=== PATIENT | female | born 1985 | race Caucasian/White ===

== ENCOUNTER 2016-08-28 08:29 | Day surgery (SDC) | payer BC, OTHER ==
[~2016-08-28] VITALS: Ht 167.6 cm; Wt 72.0 kg
[~2016-08-28 08:29] MED LIST: CEFAZOLIN 2000 MG/60 ML D5W 50 ML IV SCH; LACTATED RINGER'S 1000ML 1,000 ML IV SCH; MTR600X PO; PATIENT'S ALLERGY INFO NEEDS ENTERED SCH; PATIENT'S HEIGHT AND/OR WEIGHT NEEDED SCH; PRENTAB26 PO
[2016-08-28 08:43] VITALS: BP 119/74; PULSE 98; TEMP 36.7; O2SAT 99; Ht 167.6 cm; Wt 72.0 kg
--- NOTE | 2016-08-28 08:57 | History & Physical Bridge Note ---
H&P Re-Evaluation Bridge Note: I have examined the patient, reviewed the History & Physical and in the interval since the performance of the History & Physical I have noted the following changes of clinical significance: No changes noted
[2016-08-28] MEDS ORDERED: ONDANSETRON INJ 2 MG/ML 2 ML VIAL ONE (09:01)
[2016-08-28] MEDS ORDERED: MIDAZOLAM HCL 1 MG/ML 2ML VIAL ONE (09:01)
[2016-08-28] MEDS ORDERED: LIDOCAINE HCL 2% 2 ML VIAL (20MG/ML) ONE (09:01)
[2016-08-28] MEDS ORDERED: KETOROLAC TROMETHAMINE 30 MG/ML VIAL ONE (09:01)
[2016-08-28] MEDS ORDERED: PROPOFOL IV EMULSION 10 MG/ML 20 ML VIAL IV ONE ×2 (09:01→09:35)
[2016-08-28] MEDS ORDERED: DEXAMETHASONE SOD INJ 4 MG/ML VIAL ONE (09:01)
[2016-08-28] MEDS ORDERED: FENTANYL CITRATE INJ 50 MCG/1 ML 2 ML VIAL ONE (09:01)
[2016-08-28] MEDS ORDERED: METHYLERGONOVINE MALEATE 0.2 MG/ML AMP ONE (09:07)
[2016-08-28] MEDS ORDERED: SODIUM CHLORIDE 0.9% 1000ML 1,000 ML IV SCH (09:37)
[2016-08-28] MEDS ORDERED: IBUP600T44 PO (09:38)
--- NOTE | 2016-08-28 09:39 | Discharge Instructions ---
Discharge Instructions Date of Service Aug 28, 2016. Visit Reason for Visit: Missed Discharge Discharge Diagnosis / Problem: Missed Discharge Goals Goal(s): Decrease discomfort Activity Recommendations Activity Limitations: per Instructions/Follow-up section Anesthesia . Post Anesthesia Instructions: If you have had General Anesthesia or IV Sedation: * Do not drive today. * Resume driving when surgeon permits. * Do not make important decisions or sign legal documents today. * Call surgeon for: 1. Temperature elevations greater than 101 degrees F. 2. Uncontrollable pain. 3. Excessive bleeding. 4. Persistent nausea and vomiting. 5. Medication intolerance (nausea, vomiting or rash). * For nausea and vomiting use only clear liquids such as: tea, soda, bouillon until nausea subsides, then gradually increase diet as tolerated. * If you have any concerns or questions, call your surgeon's office. If physician is unavailable and it is an emergency, call 911 or go to the nearest emergency room. . Instructions / Follow-Up Instructions / Follow-Up ACTIVITY RECOMMENDATIONS: * Avoid tampons, douching, hot tubs, pools, and intercourse until bleeding has stopped. * May shower as usual. * No strenuous activity for 24-48 hours. After 24-48 hours, you may do anything you feel like doing (driving and sports are okay). SPECIAL CARE INSTRUCTIONS: Special Diet: * Mild nausea may occur in the immediate post-operative period. * Take clear liquids such as tea, cola or bouillon until all nausea has subsided; you may then resume your normal diet. Special Care: * Light bleeding and vaginal spotting can last from a few days to 3-4 weeks. Call your doctor if bleeding becomes heavier than the heaviest part of your period. * Check your temperature twice a day for one week. If it goes above 100.4 degrees Fahrenheit (38.0 Celsius), notify your doctor. * Call your doctor's office for an appointment for 6 weeks after your surgery. FOLLOW-UP VISIT: Call your doctor's office for an appointment for 6 weeks after your surgery. Diet Recommendations Recommended Home Diet: no limitations, resume previous diet Procedures Procedures Performed: Suction D&E Pending Studies Studies pending at discharge: no Medical Emergencies . Who to Call and When: Medical Emergencies: If at any time you feel your situation is an emergency, please call 911 immediately. . Non-Emergent Contact Non-Emergency issues call your: Primary Care Provider, Title Specialist . . "Provider Documentation" section prepared by Philippe Wayne.
--- NOTE | 2016-08-28 09:43 | [facility] Post Operative Brief Note ---
Immediate Operative Summary Operative Date Aug 28, 2016. Pre-Operative Diagnosis Missed Post-Operative Diagnosis Missed Procedure(s) Performed Suction D&E Surgeon Rosana Bonderizer Surgeon(s) None Estimated Blood Loss 50ml Findings On bimanual exam uterus was at midline and freely mobile. Uterus sounded to 11 cm. Cervix was dilated with hegar dilators. Using a size 10 suction curette the entire contents of the uterine cavity was evacuated. After completion a large banjo curette was used and a thorough curettage of the cavity was performed obtaining a minimal amount of tissue. Excellent hemostasis noted. Patient tolerated the procedure well and was sent to recovery with stable vital signs. Fluids (cc crystalloids) 600 Specimens A: Products of conception Drains None Anesthesia General Complication(s) None Disposition Recovery Room / PACU
[2016-08-28] MEDS ORDERED: OXYCODONE/ACETAMINOPHEN 5-325 TAB PO PRN ×2 (09:45)
[2016-08-28] MEDS ORDERED: ONDANSETRON INJ 2 MG/ML 2 ML VIAL IV PRN ×2 (09:45→10:00)
[2016-08-28] MEDS ORDERED: IBUPROFEN 600 MG TAB PO PRN (09:45)
[2016-08-28] MEDS ORDERED: MEPERIDINE HCL 25 MG/ML CARP IV PRN (10:00)
[2016-08-28] MEDS ORDERED: ATROPINE SULFATE 0.1 MG/ML 5ML SYR IV PRN (10:00)
[2016-08-28] MEDS ORDERED: HYDROmorphone INJ 2 MG/ML SYR/VIAL IV PRN (10:00)
[2016-08-28] MEDS ORDERED: EpHEDrine SULFATE INJ 50 MG/ML AMP IV PRN (10:00)
[2016-08-28] MEDS ORDERED: FLUMAZENIL 0.1 MG/1 ML 10 ML VIAL IV PRN (10:00)
[2016-08-28] MEDS ORDERED: NALOXONE HCL 0.4 MG/1 ML VIAL/CARP IV PRN (10:00)
[2016-08-28] MEDS ORDERED: PHENYLEPHRINE 100MCG/ML 5ML SYR IV PRN (10:00)
[2016-08-28] MEDS ORDERED: LABETALOL HCL IV 5 MG/ML 20ML IV PRN (10:00)
[2016-08-28] MEDS ORDERED: FENTANYL CITRATE INJ 50 MCG/1 ML 2 ML VIAL IV PRN (10:00)
--- NOTE | 2016-08-28 10:08 | Anesthesiology Progress Note ---
Anesthesia Post Op Note Date & Time Aug 28, 2016 at 10:07 Vital Signs Pain Intensity: 0 Vital Signs Past 12 Hours Date Time Temp Pulse Resp B/P Pulse Ox O2 Delivery O2 Flow Rate FiO2 08/28/16 10:00 77 16 107/65 97 Room Air 08/28/16 09:50 78 16 112/51 100 Mask 10 08/28/16 09:41 36.3 71 16 104/52 98 Mask 10 08/28/16 08:43 36.7 98 16 119/74 99 Room Air Notes Mental Status: alert / awake / arousable, participated in evaluation Pt Amnestic to Procedure: Yes Nausea / Vomiting: adequately controlled Pain: adequately controlled Airway Patency, RR, SpO2: stable & adequate BP & HR: stable & adequate Hydration State: stable & adequate Anesthetic Complications: no major complications apparent
[2016-08-28 10:30] VITALS: BP 104/69; PULSE 69; TEMP 36.4; O2SAT 99
[2016-08-28 11:00] VITALS: BP 121/76; PULSE 75; O2SAT 99
[2016-08-28 11:22] VITALS: BP 121/76; PULSE 72; TEMP 36.8; O2SAT 99
--- NOTE | 2016-08-28 21:24 | OPERATIVE REPORT ---
DATE OF OPERATION: 08/28/2016 PREOPERATIVE DIAGNOSIS: Missed . POSTOPERATIVE DIAGNOSIS: Same. OPERATIVE PROCEDURE: Suction, dilation and evacuation. SURGEON: Dr. Wayne. COPPER ROLLER HANDLER PRINTING: None. ANESTHESIA: General. ESTIMATED BLOOD LOSS: 50 mL. IV FLUIDS: 600 mL crystalloids. URINE OUTPUT: 150 mL clear yellow urine. SPECIMENS: Products of conception. DRAINS: None. COMPLICATIONS: None. DISPOSITION: Recovery room. OPERATIVE FINDINGS: On bimanual exam, uterus was at midline and freely mobile. Bilateral adnexa were clear to palpation. Uterus sounded to 11 cm. Cervix was dilated with a Hegar dilators. Using a size 10 suction curette, the entire contents of the uterine cavity was evacuated. After completion of the D and E, a large banjo curette was used and a thorough curettage of the cavity was performed obtaining a minimal amount of tissue. Excellent hemostasis was noted. The patient tolerated the procedure well and was sent to recovery with stable vital signs. OPERATIVE PROCEDURE IN DETAIL: The patient was taken to the operating room where general anesthesia was administered. Once the anesthesia was found to be adequate, the patient was placed in a dorsal lithotomy position and was prepped and draped in a manner appropriate for the procedure. Bimanual examination was then performed. The bladder was then drained of clear yellow urine. A weighted speculum was then placed into the vagina and the anterior lip of the cervix was grasped with a single tooth tenaculum. The cervix was then dilated with Hegar dilators. Using a size 10 suction curette, a thorough curettage of the entire endometrial cavity was performed obtaining a moderate amount of products of conception, which was sent to pathology. Once the entire cavity was evacuated, the suction curet was removed and a large banjo curette was used and a thorough curettage of the cavity was again performed obtaining a minimal amount of tissue. The uterus was sounded to 11 cm. At this point, the procedure was found to be complete. Excellent hemostasis was noted. All instruments were then removed from the vagina. All sponge and instrument counts were found to be correct x2. The patient tolerated the procedure well and was sent to recovery with stable vital signs. I attest to the content of the Intraoperative Record and any orders documented therein. Any exceptio ns are noted below.
== END 2016-08-28 11:30 | disposition home or self-care (01) ==
LOC: C.ACU 08:29
PROVIDERS: ATTEND Obstetrics & Gynecology
DX: O02.1 Missed abortion (principal); Z80.3 Family history of malignant neoplasm of breast; Z80.1 Family history of malignant neoplasm of trachea, bronchus and lung; Z80.41 Family history of malignant neoplasm of ovary; Z87.891 Personal history of nicotine dependence

== ENCOUNTER 2017-08-18 15:29 | Outpatient (CLI) | payer OTHER ==
[~2017-08-18] VITALS: Ht 170.2 cm; Wt 90.7 kg
[~2017-08-18 15:29] MED LIST changes: -CEFAZOLIN 2000 MG/60 ML D5W 50 ML IV SCH; -LACTATED RINGER'S 1000ML 1,000 ML IV SCH; -PATIENT'S ALLERGY INFO NEEDS ENTERED SCH; -PATIENT'S HEIGHT AND/OR WEIGHT NEEDED SCH
[2017-08-18 15:30] VITALS: Ht 170.2 cm; Wt 90.7 kg
--- NOTE | 2017-08-18 17:13 | Progress Note ---
Progress Note Date of Service Aug 18, 2017. Progress Note 30 F P2012 at 38 weeks here to r/o rupture membrane. Sterile speculum exam done with Nitrazine negative and no ferning. Amnisure was positive. No pooling or leakage of fluid. FHT Cat 1 GBS is negative. Irregular contractions. Will discharge home without evidence of ROM. Homegoing instructions reviewed with patient.
== END 2017-08-18 18:00 | disposition home or self-care (01) ==
LOC: C.OPB 15:29 → C.LD 15:30 → C.OPB 18:00
PROVIDERS: ATTEND Obstetrics & Gynecology
DX: O62.9 Abnormality of forces of labor, unspecified (principal); Z3A.38 38 weeks gestation of pregnancy

== ENCOUNTER 2017-08-20 04:47 | Inpatient (IN) | payer OTHER ==
[~2017-08-20] VITALS: Ht 170.2 cm; Wt 91.0 kg
[2017-08-20] MEDS ORDERED: NURSING VERBAL MED ORDER ONE (06:00)
[2017-08-20] MEDS ORDERED: LACTATED RINGER'S 1000ML 1,000 ML IV SCH ×3 (06:15→14:16)
[2017-08-20 06:18] VITALS: Ht 170.2 cm; Wt 91.0 kg
[2017-08-20 06:19] LABS: HEMATOCRIT 37.5 % (37-47); HEMOGLOBIN 12.6 g/dL (12.0-16.0); MEAN CELL VOLUME 84.8 fL (80-100); MEAN CORPUSCULAR HEMOGLOBIN 28.5 pg (25-34); MEAN PLATELET VOLUME 10.4 fL (7.4-10.4); PLATELET COUNT 216 K/uL (130-400); RED CELL DISTRIBUTION WIDTH CV 13.6 % (11.5-14.5); RED CELL DISTRIBUTION WIDTH SD 41.5 fL (36.4-46.3)
[2017-08-20 06:21] LABS: MEAN CORPUSCULAR HGB CONC 33.6 g/dl (32-36)
[2017-08-20] MEDS ORDERED: BUPIVACAINE 0.25% 30 ML VIAL ONE (07:36)
[2017-08-20] MEDS ORDERED: EpHEDrine SULFATE INJ 50 MG/ML AMP ONE (07:37)
[2017-08-20] MEDS ORDERED: FENTANYL CITRATE INJ 50 MCG/1 ML 2 ML VIAL ONE (07:37)
[2017-08-20] MEDS ORDERED: FENTANYL 2MCG/ML ROPIV 1.25MG/ML 100ML BAG EPI ONE (07:38)
[2017-08-20] MEDS ORDERED: LACTATED RINGER'S 1000ML 500 ML IV PRN (08:18)
[2017-08-20] MEDS ORDERED: NALOXONE HCL INJ 1 MG in SODIUM CHLORIDE 0.9% 1000ML 1,000 ML IV PRN ×4 (08:18)
[2017-08-20] MEDS ORDERED: DiphenhydrAMINE HCL 50 MG/ML VIAL IV PRN (08:30)
[2017-08-20] MEDS ORDERED: ONDANSETRON INJ 2 MG/ML 2 ML VIAL IV PRN (08:30)
[2017-08-20] MEDS ORDERED: EpHEDrine SULFATE INJ 50 MG/ML AMP IV PRN (08:30)
[2017-08-20] MEDS ORDERED: NALBUPHINE HCL INJ 10 MG/ML AMP IV PRN (08:30)
[2017-08-20] MEDS ORDERED: NALOXONE HCL INJ 0.4 MG/1 ML VIAL/CARP IV PRN (08:30)
[2017-08-20] MEDS ORDERED: PROMETHAZINE HCL INJ 25 MG in SODIUM CHLORIDE 0.9% 50ML 50 ML IV PRN (08:30)
[2017-08-20] MEDS ORDERED: FENTANYL 2MCG/ML ROPIV 1.25MG/ML 100ML BAG EPI PRN (08:30)
[2017-08-20] MEDS ORDERED: OXYTOCIN 30 UNITS/500ML NSS IV ONE (14:10)
[2017-08-20] MEDS ORDERED: HYDROCORTISONE ACETATE 25 MG SUPP PR PRN (14:30)
[2017-08-20] MEDS ORDERED: OXYTOCIN 30 UNITS/500ML NSS IV PRN (14:30)
[2017-08-20] MEDS ORDERED: BENZOCAINE 20% AER SPR 82.5 GM CAN EXT PRN (14:30)
[2017-08-20] MEDS ORDERED: ACETAMINOPHEN 325 MG TAB PO PRN (14:30)
[2017-08-20] MEDS ORDERED: LANOLIN OINT EXT PRN (14:30)
[2017-08-20] MEDS ORDERED: MEASLES, MUMPS & RUBELLA VIRUS VIAL SQ. ONE (14:30)
[2017-08-20] MEDS ORDERED: DIPHTHERIA/TETANUS/PERTUSSIS 0.5 ML SYR/VIAL IM. ONE (14:30)
[2017-08-20] MEDS ORDERED: SUPERCREAM 0.870 % 15GM JAR EXT PRN (14:30)
[2017-08-20] MEDS: IBUPROFEN 600 MG TAB PO PRN (14:55)
--- NOTE | 2017-08-20 16:43 | DELIVERY SUMMARY ---
DATE OF OPERATION: 08/20/2017 TIME OF DELIVERY OF BABY: 13:51 p.m. TIME OF DELIVERY OF PLACENTA: 14:08 p.m. DETAILS OF DELIVERY: The patient was found to be fully dilated and desired to push. She pushed through 3 contractions and then delivered the head over an intact perineum. Anterior shoulder was delivered with with minimal/ gentle traction and then posterior shoulder and the body delivered without difficulty. Baby was handed to the mother where mouth and nose were suctioned. The cord was clamped x2 and cut at 40 seconds delay. Baby was handed to the awaiting nurses. Vagina and perineum were checked for lacerations. There was a small about 1.5 cm, a second degree perineal laceration in the posterior fourchette. Rectal exam was confirmed to be second degree with good sphincter tone. Gloves were changed. This laceration was repaired with 3-0 Vicryl in a running locked fashion and the skin in a subcuticular fashion. Excellent hemostasis was achieved. Rest of the vagina and perineum were intact. Placenta was found to be in the vagina, delivered spontaneously with intact and complete. Uterus was explored and found to be empty. Lower segment was cleared off all clots and debris. Fundus was firm. EBL was 200ml. Mom and baby tolerated the procedure well. Baby was a viable male infant. Apgars 8/9. Weight 4684 gr. No complications happened and I was present during the whole procedure. At the end of the procedure, sponge, needle and instrument counts were x2. I attest to the content of the Intraoperative Record and any orders documented therein. Any exceptions are noted below. MTDD
[2017-08-20 18:20] VITALS: BP 123/73; PULSE 96; TEMP 36.8; O2SAT 96
[2017-08-20 19:45] VITALS: BP 130/79; PULSE 96; TEMP 36.7; O2SAT 97
[2017-08-20] MEDS: DOCUSATE SODIUM 100 MG CAP PO SCH (19:56)
[2017-08-20 23:40] VITALS: BP 121/68; PULSE 70; TEMP 36.6
[2017-08-21] MEDS: IBUPROFEN 600 MG TAB PO PRN ×3 (02:18→15:09)
[2017-08-21 04:00] VITALS: BP 122/68; PULSE 76; TEMP 36.6
[2017-08-21 06:31] LABS: HEMATOCRIT 31.3 % (37-47); HEMOGLOBIN 10.1 g/dL (12.0-16.0)
[2017-08-21 07:30] VITALS: BP 117/78; PULSE 83; TEMP 36.8; O2SAT 98
[2017-08-21] MEDS: DOCUSATE SODIUM 100 MG CAP PO SCH ×2 (07:41→20:03)
[2017-08-21] MEDS ORDERED: FERROUS SULFATE 325 MG TAB PO SCH (08:00)
[2017-08-21] MEDS ORDERED: PRENATAL VITAMIN TAB PO SCH (08:00)
[2017-08-21] MEDS ORDERED: MISC-836 ×2 (10:17)
--- NOTE | 2017-08-21 10:19 | Discharge Instructions ---
Discharge Instructions Date of Service Aug 21, 2017. Admission Reason for Admission: LABOR Discharge Discharge Diagnosis / Problem: vaginal delivery Discharge Goals Goal(s): Routine recovery after delivery Medications Continue Dispensed Medications: supercream, dermaplast, tucks, lansinoh Activity Recommendations Activity Limitations: per Instructions/Follow-up section . Instructions / Follow-Up Instructions / Follow-Up ACTIVITY RECOMMENDATIONS: * Gradual return to full activity over the next 2-3 weeks. * No lifting - nothing heavier than baby over the next 2-3 weeks. * Do not engage in vigorous exercise, sexual activity or sports until cleared by your physician. * Do not drive or operate any motorized equipment until cleared by your physician. * You may shower/bathe daily. BREAST CARE: If you are not breast feeding: * Wear a supportive bra 24 hours a day for one to two weeks. * Avoid stimulating your breasts and nipples as much as possible during the first few weeks after delivery. * When taking a shower, have the warm water hit your back, not breasts. * When your breasts feel full, apply ice packs. Usually three to four times a day helps ease the discomfort. * Take a mild pain medication (Tylenol/Motrin) when you are uncomfortable. If breast feeding: * Use breast milk to lubricate nipples. Lansinoh cream may be used for sore nipples. You do not need to remove cream prior to breast feeding. If using a different brand of cream, check the label for directions regarding removal of cream prior to nursing. * Wear a supportive bra. * If having problems with breasts or breast feeding, call a senior business consultant or your health care provider. EPISIOTOMY CARE: After delivery, if you have an episiotomy (stitches), the following steps will ease discomfort and aid healing. * For the first 24 hours after delivery, place ice packs next to your episiotomy to help reduce swelling. * After the first 24 hour-period, sitz baths, either portable or in the tub, are suggested. A shower with a shower arm sprayed over the episiotomy may be comforting. * Serina care should be done after each voiding and bowel movement. Squirt warm water from a plastic bottle over the perineum (region of the body between the anus and urinary opening) and pat dry. * Use Dermoplast to ease discomfort. Shake container. Keller directly over the episiotomy. * Place a Tucks on a clean sanitary pad next to your episiotomy. OVER THE COUNTER MEDICATION: * For discomfort or pain, you may use Acetaminophen (Tylenol), Ibuprofen (Advil ), or Naproxen (Aleve) following the package directions. * For constipation you may use Colace following the package directions. SPECIAL CARE INSTRUCTIONS: When you are discharged from the hospital, it is important for you to follow the instructions listed below: * During the first week at home, you should be able to care for yourself and your baby. In addition, the usual light household activities are encouraged. * Limit your activities to the way you feel. Do not try to clean the house or move furniture. Be sensible. * If you actively engage in sports and have done so up until the time of your delivery, you may resume these activities as soon as you feel able. This may take up to one month or even longer. Use good judgment. * Continue to take your vitamins for at least six weeks after the of your baby. * Your diet need not be limited unless you were on a special diet before your delivery. Breast-feeding mothers need around 2500 calories per day and at least 64-80 ounces of fluid per day (8 to 10 glasses). * You should eat foods from the four major food groups. Crash diets or fad diets are to be avoided. Eating lean meats, fresh fruits and vegetables, low-fat dairy products, high fiber foods and a regular exercise program, will help you get back to your pre- weight without putting your health at risk. * Constipation is sometimes a problem after delivery. Take a mild laxative as needed. If breast feeding, Milk of Magnesia is acceptable to use. You may use a suppository or Fleets enema if no episiotomy. * A daily shower or tub bath is suggested. Be sure to thoroughly and gently dry the perineum. * A bloody vaginal discharge will usually continue until around four weeks post . A small amount of bleeding may continue for as long as six weeks. Vaginal discharge changes from the bright red bleeding after delivery to pink then brownish and finally yellowish-pink before becoming white and disappearing. * Bleeding may increase with activity. Your first period may come in 4-8 weeks. If you are breast feeding, your period may be delayed even longer. * [place] (sex) can begin whenever both you and your partner feel comfortable and do not have any form of genital infection. It is recommended that you wait until after your return appointment and discuss with your physician. If you have questions, please talk to your health care practitioner. A condom should be used to prevent infection and . * Foreplay, gentle intercourse and lubrication is very important the first several times to prevent pain. A water-based lubricant such as K-Y jelly or Astroglide may be used. * Tampons may be used six weeks after delivery. * Douching should be avoided for 6 weeks after delivery. * If you have RH negative blood and your baby is RH positive, you will receive RHOGAM by injection prior to discharge. The nurse will give you a card to keep with you that has the date and place that you received RHOGAM after delivery. * During your care, you had a Rubella screen done to check for the presence of rubella antibodies in your blood. If your test was negative, you will receive a Rubella vaccine prior to discharge. This vaccine may cause a fever, soreness at the injection site and flu-like symptoms. If these symptoms persist, notify your health care practitioner. is not advised for three months after a Rubella vaccine. There is a higher chance of having a baby with defects if conceived within three months of getting the vaccine. * If you were discharged 24 hours from delivery or before 48 hours: Visiting nurses will come to your home 48 hours after discharge to assess you and your baby. The visiting nurse will meet with you while you are in the hospital to arrange a time and get directions to your home. * Verbalizes understanding of car seat law as reviewed with patient nursing. * Car Seat hand-out given and reviewed with patient by nursing. * Shaken baby information reviewed with patient by nursing. Call you doctor if: * Heavy bleeding (saturating several pads an hour) or passing clots the size of your fist. * A fever >101 degrees F (38.3 degrees C) on two occasions four hours apart and/or chills. * Unusual pain in the pelvic or vaginal areas. * "Baby Blues" lasting longer than two weeks. If you have any questions or concerns, call your health care practitioner at . FOLLOW-UP VISIT: * Please call the office at to schedule a 6 week examination. It is important you keep this appointment. * It is important for you to make arrangements for either yearly or twice yearly check-ups thereafter. Current Hospital Diet Patient's current hospital diet: Regular OB Diet Discharge Diet Recommended Diet: Regular OB Diet Pending Studies Studies pending at discharge: no Medical Emergencies . Who to Call and When: Medical Emergencies: If at any time you feel your situation is an emergency, please call 911 immediately. . Non-Emergent Contact Non-Emergency issues call your: Primary Care Provider, Air Defense Control Officer . . "Provider Documentation" section prepared by Philippe Wayne. .
--- NOTE | 2017-08-21 10:21 | OB/GYN Progress Note ---
REPAIRER GENERAL Progress Note Date of Service Aug 21, 2017. Subjective conversation w/ patient, physical exam Ambulation: ambulating normally Voiding: no voiding problems Passing Gas: Yes Diet Tolerance: Regular Diet Lochia: Moderate Pain: 2/10 Notes: Doing well, no concerns. Pain well controlled. Tolerating regular diet. Ambulating without difficulty. Would like to go home today. Objective Vital Signs Date Time Temp Pulse Resp B/P (MAP) Pulse Ox O2 Delivery O2 Flow Rate FiO2 08/21/17 07:30 98 Room Air 08/21/17 07:30 36.8 83 18 117/78 (91) 98 Room Air 08/21/17 04:00 36.6 76 18 122/68 (86) Room Air 08/20/17 23:40 Room Air 08/20/17 23:40 36.6 70 16 121/68 (85) Room Air 08/20/17 19:45 36.7 96 18 130/79 (96) 97 Room Air 08/20/17 18:20 96 Room Air 08/20/17 18:20 36.8 96 20 123/73 (90) 96 Room Air Physical Exam General Appearance: WELL-APPEARING Respiratory/Chest: chest non-tender, lungs clear Cardiovascular: regular rate, rhythm Abdomen: normal bowel sounds, soft Fundus: Firm Extremities: normal range of motion, non-tender, no calf tenderness Laboratory Results Last 24 Hours Test 08/21/17 06:07 Hemoglobin 10.1 g/dL Hematocrit 31.3 % Assessment and Plan Post- Day Number: 1 Continue Routine Care: -D/C home today -F/U in 6 weeks
[2017-08-21 11:17] VITALS: BP 125/79; PULSE 89; TEMP 35; O2SAT 96
[2017-08-21 15:20] VITALS: BP 123/81; PULSE 84; TEMP 36.7; O2SAT 97
[2017-08-21 19:45] VITALS: BP_DIAS 81; PULSE 84; TEMP 36.7
[2017-08-21] MEDS ORDERED: BISACODYL 5 MG TABEC PO SCH (20:00)
[2017-08-22] MEDS ORDERED: BISACODYL 10 MG SUPP PR PRN (07:00)
== END 2017-08-21 20:15 | disposition home or self-care (01) | DRG 775 ==
LOC: C.LD 04:47 → C.OPB 04:47 → C.LD 05:34 → C.OPB 05:34 → C.OBG 18:32
PROVIDERS: ADMIT Obstetrics & Gynecology; ATTEND Obstetrics & Gynecology
PROC: 10E0XZZ Delivery of Products of Conception, External Approach (ICD-10-PCS; principal; 2017-08-20)
PROC: 0KQM0ZZ Repair Perineum Muscle, Open Approach (ICD-10-PCS; principal; 2017-08-20)
DX: O24.420 Gestational diabetes mellitus in childbirth, diet controlled (principal); O36.0930 Maternal care for other rhesus isoimmunization, third trimester, not applicable or unspecified; O70.1 Second degree perineal laceration during delivery; O36.63X0 Maternal care for excessive fetal growth, third trimester, not applicable or unspecified; Z3A.38 38 weeks gestation of pregnancy; Z37.0 Single live birth

== ENCOUNTER 2023-05-25 06:53 | Inpatient (IN) ==
[2023-05-25] MEDS ORDERED: ONDANSETRON INJ 2 MG/ML 2 ML VIAL IV STA (07:08)
[2023-05-25] MEDS ORDERED: MoRPHine SULFATE 4 MG/ML 1 ML CARP\\VIAL IV STA (07:08)
--- NOTE | 2023-05-25 07:16 | Emergency Department Note ---
History of Present Illness General Chief complaint: Abdominal Pain Time Seen by Provider: 05/25/23 07:00 History of Present Illness Maximum Pain Intensity: 10 This is a 37-year-old female that presents to the emergency department via private vehicle with complaints of "abdominal pain". The patient noted that a little bit over 24 hours ago she began with lower abdominal discomfort. She states this began on the evening of May 23. She thought it was just some cramping in the abdomen and then notes that this morning she awoke and when she went to "stretch" she noted increasing abdominal pain throughout the lower abdomen. It is more on the right side than the left but does involve both sides. She has associated chills and nausea. She denies any fevers, vomiting, chest pain, shortness of breath or dysuria. She denies any pertinent past medical history. She notes a history of D&E. No known drug allergies. She denies chance of . Current pain 10. She has had nothing to eat or drink since last evening. Home Medications Medication Instructions Recorded Confirmed Type bupropion HCl 150 mg tablet,12 hr 150 mg PO BID 05/25/23 05/25/23 History sustained-release Allergies Allergy/AdvReac Type Severity Reaction Status Date / Time No Known Allergies Allergy Verified 05/25/23 11:08 Past Med/Surg History Medical History No pertinent past medical history Social History Smoking Status: Current every day smoker Tobacco Type: Cigarettes Preferred Language: Eritrean Feels Safe at Home: Yes Review of Systems A total of 10 systems reviewed and were otherwise negative Physical Exam Vital Signs Vital Signs - 24 hr 05/25/23 06:56 05/25/23 08:57 05/25/23 10:47 Temperature 36.6 C Temperature Source Temporal Artery Scan Pulse Rate 91 H 68 Pulse Rate [Finger] 80 Pulse Rhythm [Finger] Regular Pulse Strength [Finger] Normal Respiratory Rate 18 18 16 Respiratory Effort / Characteristics Non-Labored Spontaneous Respiratory Depth Normal Respiratory Pattern Regular Blood Pressure 126/66 117/68 Blood Pressure [Right Arm] 117/63 Blood Pressure Mean 86 Blood Pressure Mean [Right Arm] 81 Blood Pressure Position [Right Arm] Pulse Oximetry 100 98 97 Oxygen Delivery Method Room Air Room Air Room Air Sepsis Recent Fever Within 48 Hours No Sepsis New/Unexplained Change in Mental Status No Sepsis Action Taken by Nursing No Action Required 05/25/23 11:04 Temperature 37.0 C Temperature Source Oral Pulse Rate Pulse Rate [Finger] 110 H Pulse Rhythm [Finger] Pulse Strength [Finger] Respiratory Rate 18 Respiratory Effort / Characteristics Non-Labored Spontaneous Respiratory Depth Normal Respiratory Pattern Regular Blood Pressure Blood Pressure [Right Arm] 132/72 Blood Pressure Mean Blood Pressure Mean [Right Arm] 92 Blood Pressure Position [Right Arm] Semi-fowlers Pulse Oximetry 100 Oxygen Delivery Method Room Air Sepsis Recent Fever Within 48 Hours Sepsis New/Unexplained Change in Mental Status Sepsis Action Taken by Nursing VITAL SIGNS - Vital signs and nursing notes were reviewed. Stable and afebrile. GENERAL - 37-year-old female appearing her stated age who is in no acute distress. Communicates well with provider and answers questions appropriately. SKIN - Without rashes. HEAD - NC/AT. EYES - Sclera anicteric. MOUTH/OROPHARYNX - Without perioral cyanosis. NECK - Neck with FROM. No nuchal rigidity. LUNGS - Chest wall symmetric without accessory muscle use, intercostals retractions, or central cyanosis. Normal vesicular breath sounds CTA B/L. No wheezes, rales, or rhonchi appreciated. CARDIAC - RRR with S1/S2. No murmur, rubs, or gallops appreciated. ABDOMEN - Abdominal contour normal without pulsations or visible masses. BS normoactive all four quadrants. Right lower quadrant abdominal tenderness to palpation. No guarding or rigidity. No palpable masses, hepatosplenomegaly, or ascites noted. EXTREMITIES - No clubbing or peripheral cyanosis. +5/5 strength noted in UE/LE bilaterally. NEUROLOGIC - Cranial nerves II through XII grossly intact. Sensory intact to light touch throughout. PSYCH - A&O, and cooperates fully with examiner. Pt is very pleasant and interacts well with examiner. Course Administered Medications Discontinued Medications Hydromorphone HCl (Hydromorphone Inj 0.5 Mg/0.5 Ml Syr) 0.5 mg IV NOW STA Stop: 05/25/23 08:35 Last Admin: 05/25/23 08:42 Dose: 0.5 mg Documented By: NA Piperacillin Sod/Tazobactam Sod (Zosyn) 4.5 gm in 100 mls @ 200 mls/hr IV NOW ONE Stop: 05/25/23 09:50 Last Admin: 05/25/23 09:33 Dose: 200 mls/hr Documented By: SAAD Ioversol (Optiray 320 500ml) 91 ml IV ONCE ONE Stop: 05/25/23 08:22 Last Admin: 05/25/23 08:17 Dose: 91 ml Documented By: CANDELARIO Morphine Sulfate (Morphine Sulfate 4 Mg/Ml 1 Ml Carp\\Vial) 4 mg IV NOW STA Stop: 05/25/23 07:09 Last Admin: 05/25/23 07:29 Dose: 4 mg Documented By: SAAD Ondansetron HCl (Ondansetron Inj 2 Mg/Ml 2 Ml Vial) 4 mg IV NOW STA Stop: 05/25/23 07:09 Last Admin: 05/25/23 07:28 Dose: 4 mg Documented By: SAAD Medical Decision Making Laboratory Data 05/25/23 07:24 05/25/23 07:24 Lab Results 05/25/23 05/25/23 Range/Units 07:24 10:53 WBC 13.75 H (4.8-10.8) K/ul RBC 4.99 (4.20-5.40) M/uL Hgb 14.7 (12.0-16.0) g/dl Hct 42.6 (37.0-47.0) % MCV 85.4 (80.0-100.0) fL MCH 29.5 (25.0-34.0) pg MCHC 34.5 (32.0-36.0) g/dL RDW Std Deviation 38.5 (36.4-46.3) fL RDW Coeff of Shaina 12.4 (11.5-14.5) % Plt Count 268 (130-400) K/uL MPV 9.8 (9.4-12.4) fL Immature Gran % (Auto) 0.5 % Neut % (Auto) 76.1 % Lymph % (Auto) 13.5 % [place] % (Auto) 8.7 % Eos % (Auto) 0.8 % Baso % (Auto) 0.4 % Neut # (Auto) 10.47 H (1.40-6.50) K/uL Lymph # (Auto) 1.85 (1.20-3.40) K/uL [place] # (Auto) 1.20 H (0.11-0.59) K/uL Eos # (Auto) 0.11 (0.00-0.50) K/uL Baso # (Auto) 0.05 (0.00-0.20) K/uL Immature Gran # (Auto) 0.07 (0.01-0.20) K/uL Sodium 135 L (136-145) mmol/L Potassium 4.3 (3.5-5.1) mmol/L Chloride 104 (98-107) mmol/L Carbon Dioxide 25 (21-32) mmol/L Anion Gap 6 (3-11) BUN 12 (6-23) mg/dl Creatinine 0.75 (0.6-1.2) mg/dl Est Cr Clr Drug Dosing Not Reportable Est GFR ( Amer) 119.7 ml/min Est GFR (Non-Af Amer) 103.3 ml/min BUN/Creatinine Ratio 16.0 (10-20) Glucose 156 H (70-99(Fasting)) mg/dl Calcium 9.6 (8.6-10.3) mg/dl Total Bilirubin 0.4 (0.2-1.0) mg/dl AST 36 (13-39) U/L ALT 46 (7-52) U/L Alkaline Phosphatase 96 (34-104) U/L Total Protein 7.8 (6.0-8.3) gm/dl Albumin 4.4 (3.4-5.0) gm/dl Globulin 3.4 (2.5-4.0) gm/dl Albumin/Globulin Ratio 1.3 (0.9-2) Lipase 18 (11-82) U/L HCG, Qual Negative (Negative) Urine Color Yellow Urine Appearance Clear (Clear) Urine pH 5.0 (4.5-7.5) Ur Specific [place] > 1.045 H (1.000-1.030) Urine Protein Negative (Negative) Urine Glucose (UA) Negative (Negative) Urine Ketones Negative (Negative) Urine Blood Trace H (Negative) Urine Nitrite Negative (Negative) Urine Bilirubin Negative (Negative) Urine Urobilinogen Negative (Negative) Ur Leukocyte Esterase Trace H (Negative) Urine WBC (Auto) 5-10 H (0-5) /hpf Urine RBC (Auto) 0-4 (0-4) /hpf U Hyaline Cast (Auto) 0 (0-5) /lpf U Epithel Cells (Auto) 20-30 H (0-5) /lpf Urine Bacteria (Auto) Negative (Negative) Imaging Data Radiologist's Impression: Abdomen/Pelvis CT 05/25/23 07:[address] WITH IV CONTRAST CT DOSE: 835.95 mGy.cm HISTORY: R>L lower abd pain TECHNIQUE: Multiaxial CT images of the abdomen and pelvis were performed following the use of intravenous contrast. A dose lowering technique was utilized adhering to the principles of ALARA. COMPARISON STUDY: None. FINDINGS: The lung bases are clear. No pneumoperitoneum. No pneumatosis. No acute fractures identified. There is a tiny hiatus hernia. The liver, gallbladder, spleen, adrenal glands, and pancreas are unremarkable. The kidneys enhance normally. No hydronephrosis. Normal caliber abdominal aorta. No retroperitoneal lymphadenopathy. A few prominent mesenteric lymph nodes which may be reactive. The bladder, uterus, and ovaries are unremarkable. Small amount of partially loculated pelvic fluid with adjacent peritoneal enhancement. This could represent a developing abscess. However, no drainable fluid collections at this time. No dilated loops of bowel to suggest an obstruction. Distended and thick-walled appendix with periappendiceal fat stranding consistent with acute appendicitis. The appendix measures up to 14 mm in diameter. There are 2 appendicoliths within the appendix measuring up to 8 mm in size. Mild thickening of the cecal base adjacent terminal ileum is likely reactive to the acute appendicitis. IMPRESSION: 1. Above findings consistent with acute appendicitis. 2. A small amount of partially loculated pelvic fluid with adjacent peritoneal enhancement. This could represent a developing abscess. However, no drainable fluid collections at this time. ACT 112: Negative or not required by law. Electronically signed by: Hari Desouza M.D. 05/25/2023 9:12 AM MDM Narrative Patient was seen and evaluated as above in room D05. Review was performed of nursing notes and vital signs. I did review pertinent previous visits and patient history. After obtaining a thorough history and physical examination the above work up was performed. Patient presents to us today for evaluation of lower abdominal discomfort that is more on the right side. She is tender in the right lower quadrant. Pain began a little over 24 hours ago. She has associated nausea and chills. No vomiting. The patient denies any history of abdominal surgeries. Options of care were discussed with the patient. IV access was established. Labs were drawn. CT scan was ordered of the abdomen and pelvis. IV morphine was ordered for pain, Zofran for nausea. Patient was reevaluated with minimal improvement from the morphine. IV Dilaudid then ordered. This did greatly improve her pain. Labs reveal leukocytosis 13.75. No anemia. HCG negative. Mild hyponatremia at 135. No evidence of kidney or liver failure. CT scan results as above and reveal: Acute appendicitis and a small amount of partially loculated pelvic fluid with adjacent peritoneal enhancement. There is comment that this could represent developing abscess. No drainable fluid collection at this time. IV Zosyn was ordered noting the infectious findings that correlate clinically with the patient's presentation. Case then discussed with the general surgery service at 0930 hrs on 05/25/23. In addition to the IV antibiotics I did order maintenance fluids pending surgical evaluation. Patient was then taken to the operative suite. Please refer to further documentation regarding her stay. GCS: 15 In the evaluation and treatment of this patient the following differential diagnoses were entertained: Ovarian torsion, ovarian cyst, UTI, pyelonephritis, kidney stone, diverticulitis, appendicitis, bowel perforation, among others. Impression & Plan Acute appendicitis, Abdominal pain, Leukocytosis Discharge Plan Visit Data Chief Complaint: Abdominal Pain ED Provider: [facility] Midlevel Provider: Benedicto Galan Discharge Problem: Acute appendicitis, Abdominal pain, Leukocytosis Patient Disposition: Being Evaluated by Surgeon Condition: Good Discharge Instructions Interventions: ED Discharge Assessment Last Done: 05/25/23 10:47
[2023-05-25 07:45] LABS: Basophils # (auto) 0.05 K/uL (0.00-0.20); Basophils % (auto) 0.4 %; Eosinophils # (auto) 0.11 K/uL (0.00-0.50); Eosinophils % (auto) 0.8 %; Hematocrit (blood only) 42.6 % (37.0-47.0); Hemoglobin 14.7 g/dl (12.0-16.0); Immature Granulocytes # (auto) 0.07 K/uL (0.01-0.20); Immature Granulocytes % (auto) 0.5 %; Lymphocytes # (auto) 1.85 K/uL (1.20-3.40); Lymphocytes % (auto) 13.5 %; Mean Corpuscular Hemoglobin 29.5 pg (25.0-34.0); Mean Corpuscular Hgb Conc 34.5 g/dL (32.0-36.0); Mean Corpuscular Volume 85.4 fL (80.0-100.0); Mean Platelet Volume 9.8 fL (9.4-12.4); Monocytes % (auto) 8.7 %; Neutrophils # (auto) 10.47 K/uL (1.40-6.50); Neutrophils % (auto) 76.1 %; Platelet Count 268 K/uL (130-400); RDW Coefficient of Variation 12.4 % (11.5-14.5); RDW Standard Deviation 38.5 fL (36.4-46.3); Red Blood Count 4.99 M/uL (4.20-5.40); White Blood Count 13.75 K/ul (4.8-10.8)
[2023-05-25 07:56] LABS: Pregnancy Test, Serum Negative (Negative)
[2023-05-25 07:57] LABS: Alanine Aminotransferase 46 U/L (7-52); Albumin Globulin Ratio 1.3 (0.9-2); Albumin Level 4.4 gm/dl (3.4-5.0); Alkaline Phosphatase 96 U/L (34-104); Anion Gap 6 (3-11); Aspartate Aminotransferase 36 U/L (13-39); Bilirubin,Total 0.4 mg/dl (0.2-1.0); Blood Urea Nitrogen 12 mg/dl (6-23); Calcium 9.6 mg/dl (8.6-10.3); Carbon Dioxide 25 mmol/L (21-32); Chloride 104 mmol/L (98-107); Est GFR (African American) 119.7 ml/min; Est GFR (Non-African American) 103.3 ml/min; Globulin 3.4 gm/dl (2.5-4.0); Glucose 156 mg/dl (70-99(Fasting)); Lipase 18 U/L (11-82); Potassium 4.3 mmol/L (3.5-5.1); Sodium 135 mmol/L (136-145); Total Protein 7.8 gm/dl (6.0-8.3)
[2023-05-25] MEDS ORDERED: OPTIRAY 320 500ml IV ONE (08:21)
[2023-05-25] MEDS ORDERED: HYDROmorphone INJ 0.5 MG/0.5 ML SYR IV STA (08:34)
--- NOTE | 2023-05-25 09:15 | CT Scan Report ---
ABDOMEN AND PELVIS CT WITH IV CONTRAST CT DOSE: 835.95 mGy.cm HISTORY: R>L lower abd pain TECHNIQUE: Multiaxial CT images of the abdomen and pelvis were performed following the use of intrave nous contrast. A dose lowering technique was utilized adhering to the principles of ALARA. COMPARISON STUDY: None. FINDINGS: The lung bases are clear. No pneumoperitoneum. No pneumatosis. No acute fractures identifie d. There is a tiny hiatus hernia. The liver, gallbladder, spleen, adrenal glands, and pancreas are un remarkable. The kidneys enhance normally. No hydronephrosis. Normal caliber abdominal aorta. No retro peritoneal lymphadenopathy. A few prominent mesenteric lymph nodes which may be reactive. The bladder , uterus, and ovaries are unremarkable. Small amount of partially loculated pelvic fluid with adjacen t peritoneal enhancement. This could represent a developing abscess. However, no drainable fluid michele ections at this time. No dilated loops of bowel to suggest an obstruction. Distended and thick-walled appendix with periappendiceal fat stranding consistent with acute appendicitis. The appendix measure s up to 14 mm in diameter. There are 2 appendicoliths within the appendix measuring up to 8 mm in siz e. Mild thickening of the cecal base adjacent terminal ileum is likely reactive to the acute appendic itis. IMPRESSION: 1. Above findings consistent with acute appendicitis. 2. A small amount of partially loculated pelvic fluid with adjacent peritoneal enhancement. This coul d represent a developing abscess. However, no drainable fluid collections at this time. ACT 112: Negative or not required by law. Electronically signed by: Hari Desouza M.D. 05/25/2023 9:12 AM
[2023-05-25] MEDS ORDERED: PIPERACILLIN/TAZOBACTAM 4.5 GM/100 ML BAG IV ONE (09:21)
--- NOTE | 2023-05-25 10:00 | History & Physical Report ---
Date of Service May 25, 2023 Assessment & Plan (1) Acute appendicitis: Plan: Patient is a pleasant 37 yo female with PMH of anxiety/depression, smoker (1/2 ppd), that presented to the [facility] this AM with c/o abdominal pain that began two days ago. She reports that the pain started to get worse last night and had associated nausea / vomiting and chills. She denies known fever, SOB , CP, last moved her bowels yesterday. No prior abdominal surgeries, denies blood thinners , takes po Wellbutrin when remembers. HCG - in ER. On exam abdomen in TTP in RLQ , LLQ, non distended, soft. VSS WBC 13 CT scan reading IMPRESSION: 1. Above findings consistent with acute appendicitis. 2. A small amount of partially loculated pelvic fluid with adjacent peritoneal enhancement. This could represent a developing abscess. However, no drainable fluid collections at this time. Keep NPO IV Fluids for hydration IV antiemetic PRN IV antibiotics was given zosyn in the ER IV analgesic PRN Discussed CT results and surgical intervention. Patient would like to proceed with a laparoscopic appendectomy, with Dr. Jason Hector. Risks of surgery reviewed to include, bleeding , infection, injury to other organs, need for further surgery, drains, anesthesia complications, . Patient verbalized understanding and questions answered. History of Present Illness Chief Complaint: abdominal pain Primary Care Provider: Clare Reynolds MD Patient is a pleasant 37 yo female with PMH of anxiety/depression, smoker (1/2 ppd), that presented to the [facility] this AM with c/o abdominal pain that began two days ago. She reports that the pain started to get worse last night and had associated nausea / vomiting and chills. She denies known fever, SOB , CP, last moved her bowels yesterday. No prior abdominal surgeries, denies blood thinners , takes po Wellbutrin when remembers. Allergies Allergy/AdvReac Type Severity Reaction Status Date / Time No Known Allergies Allergy Verified 05/25/23 11:08 Home Medications Medication Instructions Recorded Confirmed Type bupropion HCl 150 mg tablet,12 hr 150 mg PO BID 05/25/23 05/25/23 History sustained-release Past Med/Surg History Medical History No pertinent past medical history Social History Smoking Status: Current every day smoker Tobacco Type: Cigarettes Preferred Language: Danish Feels Safe at Home: Yes Review of Systems Constitutional: + chills; no fever Eyes: no problem reported Ear, Nose, Mouth, Throat: no problem reported Respiratory: no cough and no dyspnea Cardiovascular: no chest pain and no chest pain with activity Gastrointestinal: + abdominal pain, + bloating, + nausea, + vomiting and + cramping Genitourinary: no dysuria Musculoskeletal: no muscle weakness Integumentary: no rash Neurologic: no confusion and no memory loss Psychiatric: no problem reported Physical Exam Physical Exam: alert oriented Constitutional: well developed and cooperative; no acute distress and + uncomfortable ENMT: external ear and nose normal, oropharynx normal Neck: trachea midline, no thyromegaly Respiratory: normal respiratory effort and able to speak in complete sentences; no respiratory distress Cardiovascular: Rate/Rhythm: regular rate Heart Sounds: normal S1 and normal S2; no murmur Gastrointestinal (Abdomen): normal bowel sounds, soft, nontender, no hepatosplenomegaly Inspection/Auscultation: abdomen not distended Percussion/Palpation: abdomen not rigid Musculoskeletal: no cyanosis or clubbing, extremities motor strength 5/5 Skin: no rashes, warm and dry Neurologic: awake; not confused Speech / Cognition: normal speech Psychiatric: A+Ox3, euthymic affect Results & Data Results & Data Vital Signs (Past 12 Hours) Vital Signs Temp Pulse Pulse Resp BP BP Pulse Ox 05/25/23 08:57 80 18 117/63 98 05/25/23 06:56 97.9 F 91 H 18 126/66 100 O2 Del Method 05/25/23 08:57 Room Air 05/25/23 06:56 Room Air Diagnostic Findings [facility], [place] [phone] CT Scan Report Patient: ANDREA GARY Admit Date: 05/25/23 MR#: [id number] Address1: [address] [facility] [facility] Acct ID:[id number] Address2: Date: [address] [facility] Zip: [place] [address] Age: 37 Location: ED Sex: F Room/Bed: Att Phy: Diagnosis: Stomach Pains Zulay Phy: Clare Reynolds MD Service Date: 05/25/23 [facility] Phy: Interpreting Phy: Hari Desouza MDAdmit Phy: Ordering Phy: Benedicto Galan PA-C cc: ~ ABDOMEN AND PELVIS CT WITH IV CONTRAST CT DOSE: 835.95 mGy.cm HISTORY: R>L lower abd pain TECHNIQUE: Multiaxial CT images of the abdomen and pelvis were performed f ollowing the use of intravenous contrast. A dose lowering technique was utilized adhering to the principles of ALARA. COMPARISON STUDY: None. FINDINGS: The lung bases are clear. No pneumoperitoneum. No pneumatosis. No acute fractures identified. There is a tiny hiatus hernia. The liver, gallbladder, spleen, adrenal glands, and pancreas are unremarkable. The kidneys enhance normally. No hydronephrosis. Normal caliber abdominal aorta. No retroperitoneal lymphadenopathy. A few prominent mesenteric lymph nodes which may be reactive. The bladder, uterus, and ovaries are unremarkable. Small amount of partially loculated pelvic fluid with adjacent peritoneal enhancement. This could represent a developing abscess. However, no drainable fluid collections at this time. No dilated loops of bowel to suggest an obstruction. Distended and thick-walled appendix with periappendiceal fat stranding consistent with acute appendicitis. The appendix measures up to 14 mm in diameter. There are 2 appendicoliths within the appendix measuring up to 8 mm in size. Mild thickening of the cecal base adjacent terminal ileum is likely reactive to the acute appendicitis. IMPRESSION: 1. Above findings consistent with acute appendicitis. 2. A small amount of partially loculated pelvic fluid with adjacent peritoneal enhancement. This could represent a developing abscess. However, no drainable fluid collections at this time. ACT 112: Negative or not required by law. Electronically signed by: Hari Desouza M.D. 05/25/2023 9:12 AM Dictated: 05/25/23902 Transcribed: 05/25/23902 CBC Results Results Complete Blood Count Results: RBC 4.99 M/uL (4.20-5.40) 05/25/23 WBC 13.75 K/ul (4.8-10.8) H 05/25/23 Hgb 14.7 g/dl (12.0-16.0) 05/25/23 Hct 42.6 % (37.0-47.0) 05/25/23 Plt Count 268 K/uL (130-400) 05/25/23 Chemistry Results CMP Results: Na 135 mmol/L (136-145) L 05/25/23 K 4.3 mmol/L (3.5-5.1) 05/25/23 Cl 104 mmol/L (98-107) 05/25/23 CO2 25 mmol/L (21-32) 05/25/23 Anion Gap 6 (3-11) 05/25/23 BUN 12 mg/dl (6-23) 05/25/23 Creatinine 0.75 mg/dl (0.6-1.2) 05/25/23 Estimated GFR ( Amer) 119.7 ml/min 05/25/23 Estimated GFR (Non-Af Amer) 103.3 ml/min 05/25/23 BUN/Creatinine Ratio 16.0 (10-20) 05/25/23 Glu 156 mg/dl (70-99(Fasting)) H 05/25/23 Ca 9.6 mg/dl (8.6-10.3) 05/25/23 Total Bilirubin 0.4 mg/dl (0.2-1.0) 05/25/23 AST 36 U/L (13-39) 05/25/23 ALT 46 U/L (7-52) 05/25/23 Alkaline Phosphatase 96 U/L (34-104) 05/25/23 TP 7.8 gm/dl (6.0-8.3) 05/25/23 Albumin 4.4 gm/dl (3.4-5.0) 05/25/23 Globulin 3.4 gm/dl (2.5-4.0) 05/25/23 Albumin/Globulin Ratio 1.3 (0.9-2) 05/25/23 Supervising Physician Co-Signing Physician Notes I have seen and examined this patient. I agree with the plan. The details of a laparoscopic appendectomy possible open have been explained to her including the risks and benefits. She expressed understanding of this explanation and all of her questions were answered. Consent was obtained. PG Care Time/CCT Total # of Minutes Spent Total Time Spent with Patient: Total time spent is greater than 50% in coordination of care (as documented) at patient's floor/unit and/or counseling patient: Coding Level of Care Code 40848 INT INP/OBS CARE MIN Diagnoses Acute appendicitis K35.80
--- NOTE | 2023-05-25 10:33 | Anesthesiology Consultation ---
Date of Service May 25, 2023 Assessment & Plan (1) Encounter for pre-operative examination: Chart Review Chart Review: Acceptable Risk for Surgery and Patient NOT seen in Pre Admission Testing Consults Requested none History Surgery Operation Date: 05/25/23 08:50 Proposed Procedures p Laparoscopic Appendectomy - Gideon Rosa DO Height/Weight Height: 5 ft 5 in Weight: 82 kg Allergies Allergy/AdvReac Type Severity Reaction Status Date / Time No Known Allergies Allergy Unverified 08/20/17 06:17 Medications Home Medications Medication Instructions Recorded Confirmed Last Taken Multivit/Min/Iron/Fol Ac/Pren 1 tab PO DAILY #0 tabs 07/11/13 Unknown ( Vitamin) MISC. DEVICES (BREAST PUMP) unit ##1 08/21/17 Unknown Past Medical History Medical History No pertinent past medical history Social History Smoking Status: Current every day smoker Physical Exam Vital Signs Last Vital Signs Temp 97.9 F 05/25/23 06:56 Pulse 80 05/25/23 08:57 Resp 18 05/25/23 08:57 BP 117/63 05/25/23 08:57 Pulse Ox 98 05/25/23 08:57 O2 Del Method Room Air 05/25/23 08:57 Testing Laboratory Results 05/25/23 07:24 05/25/23 07:24
[2023-05-25 11:16] LABS: Appearance Urine Clear (Clear); Bacteria Urine Automated Negative (Negative); Bilirubin Urine Negative (Negative); Blood Urine Trace (Negative); Color Urine Yellow; Epithelial Cell Urine Auto 20-30 /lpf (0-5); Glucose Urine UA Negative (Negative); Ketones Urine Negative (Negative); Leukocyte Esterase Urine Trace (Negative); Nitrite Urine Negative (Negative); Protein Urine Negative (Negative); Specific Gravity Urine > 1.045 (1.000-1.030); Urobilinogen Urine Negative (Negative)
[2023-05-25 11:31] LABS: Cast Urine Automated 0 /lpf (0-5)
[2023-05-25 11:33] LABS: RBC Urine Automated 0-4 /hpf (0-4)
[2023-05-25] MEDS ORDERED: PROPOFOL IV EMULSION 10 MG/ML 20 ML VIAL IV ONE (11:48)
[2023-05-25] MEDS ORDERED: NEOSTIGMINE METHYLSULFATE 1 MG/ML 10ML VIAL ONE (11:48)
[2023-05-25] MEDS ORDERED: ONDANSETRON INJ 2 MG/ML 2 ML VIAL IV PRN ×2 (11:48→17:22)
[2023-05-25] MEDS ORDERED: ATROPINE SULFATE 0.1 MG/ML 10ML SYR IV PRN (11:48)
[2023-05-25] MEDS ORDERED: ROCURONIUM BROMIDE 10 MG/ML 5 ML VIAL IV ONE ×2 (11:48→14:11)
[2023-05-25] MEDS ORDERED: LIDOCAINE 2% 2 ML VIAL/AMP(20MG/ML) INFIL ONE (11:48)
[2023-05-25] MEDS ORDERED: ePHEDrine sulfate 50 MG/ML AMP IV PRN (11:48)
[2023-05-25] MEDS ORDERED: fentaNYL citrate PF 100 MCG/2 ML VIAL ONE ×2 (11:48→13:56)
[2023-05-25] MEDS ORDERED: GLYCOPYRROLATE 0.2 MG/ML VIAL ONE (11:48)
[2023-05-25] MEDS ORDERED: MIDAZOLAM HCL 1 MG/ML 2ML VIAL ONE (11:48)
[2023-05-25] MEDS ORDERED: DEXAMETHASONE SOD INJ 4 MG/ML VIAL ONE (11:48)
[2023-05-25] MEDS ORDERED: ONDANSETRON INJ 2 MG/ML 2 ML VIAL ONE (11:48)
[2023-05-25] MEDS ORDERED: BUPIVACAINE/EPINEPHRINE 0.5% MPF 1:200,000 30 ML VIAL ONE (11:51)
[2023-05-25] MEDS ORDERED: ESMOLOL HCL INJ 10 MG/ML 10ML VIAL IV ONE (12:52)
[2023-05-25] MEDS ORDERED: ACETAMINOPHEN 1000 MG/100 ML IV IV ONE (13:01)
--- OUTSIDE RECORDS SUMMARY | 2023-05-25 14:21 | External Medical Summary | Summary of Care ---
Author Name Unknown Organization [facility] Address [address] [facility] [place] [address] Phone [phone] Care Team Providers Care Credit Report Checker Name Role Phone Katherine Arevalo DO Primary Care Provider [phone] Encounter Details Date Type Department Care Team (Late st Contact Info) Description 03/14/2023 5:40 PM EDT Telemedicine Family Practice [facility] [address] [place] [id number] Katherine Arevalo DO [address] [place] [address] Tobacco abuse disorder* Allergies No known active allergiesdocumented as of this encounter (statuses as of 03/14/2023) Medications Medication Sig Dispensed Refills Start Date End Date Status Betamethasone Dipropionate 0.05 % External Cream (Diprosone) Apply topically to affected area 2 times a day . Applied to flares of itching, eczema rash 45 g 3 07/19/2021 Active Additional Information Patient not taking.Reported on 01/25/2022 Levocetirizine Dihydrochloride 5 MG Oral Tablet Take by mouth 1 Tablet in the morning AND 1 Tablet before bedtime. 0 08/16/2021 Active Additional Information Patient not taking.Reported on 01/25/2022 buPROPion HCl ER (SR) 150 MG Oral Tablet Extended Release 12 Hour (Wellbutrin SR)Indications:Tobacc o abuse disorder Take 1 tab by mouth daily x 3 days, then increase to 1 tab twice daily 60 Tablet 5 03/14/2023 Active documented as of this encounter (statuses as of 03/14/2023) Active Problems Problem Noted Date Diagnosed Date Pruritic dermatitis 06/23/2020 Overweight (BMI 25.0-29.9) 06/23/2020 documented as of this encounter (statuses as of 03/14/2023) Resolved Problems Problem Noted Date Diagnosed Date Resolved Date GDM (gestational diabetes mellitus) 08/09/2017 08/20/2017 Overview: 3hr gtt abnormal at 36weeks LGA (large for gestational a ge) fetus affecting management of mother 06/15/2017 8 Overview: @ 28w5d: Estimated weight is 1857 gm plus or - 271 g. (approx 3 weeks ahead) @ 32w4d: 2928gm >95%; ALBERTO 21cm Recommend re-screening for GDM if not done within the previous 3 weeks. Recommend repeating ultrasound for growth at 38-39 weeks gestation. Recommend delivery without trial of labor for estimated weight >5000g (in the non-diabetic woman) OR >4500g (in the diabetic woman). Concern for macrosomia is NOT an indication for induction of labor. The patient should discuss further management and delivery plan with her primary OB provider. Normal in multigravida 01/24/2017 08/20/2017 Overview: Problem Action Taken Date entered Entered by Date resolved nutrition wic info given 01/24/2017 Nidhi Pantoja RN 01/24/2017 Education Declines need for home nursing or PNC 01/24/2017 Nidhi Pantoja RN 01/24/2017 Problem Action Taken Date entered Entered by Date resolved Current needs or questions Patient denies having any current needs or questions 03/07/2017 Nidhi Pantoja RN 03/07/2017 Problem Action Taken Date entered Entered by Date resolved Current needs or questions Patient denies having any current needs or questions 04/04/2017 Yajaira Fontana RN 04/04/17 Problem Action Taken Date entered Entered by Date resolved Backache Tried tylenol and heat 05/02/2017 Nidhi Pantoja RN 05/02/2017 Problem Action Taken Date entered Entered by Date resolved Current needs or questions Patient denies having any current needs or questions 06/13/2017 Nidhi Pantoja RN 06/13/2017 Problem Action Taken Date entered Entered by Date resolved Current needs or questions Patient denies having any current needs or questions 07/11/2017 Nidhi Pantoja RN 07/11/2017 Problem Action Taken Date entered Entered by Date resolved Current needs or questions Patient denies having any current needs or questions 07/30/2017 Yajaira Fontana RN 07/30/17 Problem Action Taken Date entered Entered by Date resolved Current needs or questions Patient denies having any current needs or questions 08/06/2017 Yajaira Fontana RN 08/06/17 Problem Action Taken Date entered Entered by Date resolved Current needs or questions Patient denies having any current needs or questions 08/17/2017 Diamond Curry RN 08/17/2017 08/17/2017 Tdap Vaccine administered per clinic protocol. Pt given VIS(vaccine information sheet) Diamond Curry RN Patient declined flu vaccine. 02/05/2017 Priti Gonzalez RN Encounter for supervision of normal 07/27/19 17 08/28/2016 Overview: Problem Action Taken Date entered Entered by Date resolved nutrition due date letter given for WIC 07/26/2016 Nidhi Pantoja RN 07/26/2016 Unknown lmp US to be completed 07/26/2016 Nidhi Pantoja RN 07/26/2016 Problem Action Taken Date entered Entered by Date resolved Home nursing and PNC Declines 07/26/2016 Nidhi Pantoja RN 07/26/2016 Problem Action Taken Date entered Entered by Date resolved Current needs or questions Patient denies having any current needs or questions 08/23/2016 Yajaira Fontana RN 08/23/16 Rh negative, antepartum 12/05/2012 04/0 06/2017 Overview: Rhogam candidate- Given 06/13/2017 Nidhi Pantoja RN Encounter for supervision of other normal 12/04/2012 07/17/2013 Overview: Patient had flu vaccine Diamond Curry RN ICD-10 update of inactive term documented as of this encounter (statuses as of 03/14/2023) Immunizations Name Administration Dates Next Due Seasonal Influenza, Split, IIV3, With Preserve, Inj 03/05/2013 TDAP (age 10 and older)(Boostrix) 08/17/2017 documented as of this encounter Social History Tobacco Use Types Packs/Day Years Used Date Smoking Tobacco: Every Day Cigarettes 0.5 15 Started: 05/21/2005 Smokeless Tobacco: Never Comments:No passive smoke ex posures Alcohol Use Standard Drinks/Week Comments Yes 0 (1 standard drink = 0.6 oz pur e alcohol) PHQ-2 Answer Date Recorded PHQ-2 Score -1 03/26/2018 Hunger Vital Sign Answer Date Recorded Within the past 12 months, y ou worried that your food would run out before you got the money to buy more. Sometimes true Within the past 12 months, t he food you bought just didn't last and you didn't have money to get more. Sometimes true 03/2023 Sex and Gender Information Value Date Recorded Sex Assigned at Female 02/28/2023 6:07 PM EDT Gender Identity Female 02/28/2023 6:07 PM EDT Sexual Orientation Straight 02/28/2023 6: 07 PM EDT Job Start Date Occupation Industry Not on file Not on file Not on file documented as of this encounter Progress Notes * Katherine Arevalo, - 03/14/2023 5:40 PM EDT Subjective: Adriana Gibson is a 37 year old female. No chief complaint on file. Patient location: HOME. I was in a hospital or clinic location. After connecting through [employer], patient was verified with two unique identifiers. Patient (or authorized legal outbound telemarketing representative) wasthen informed that this was a Telemedicine visit and being conducted confidentially over secure lines. Methods to assure confidentiality were taken. Patient acknowledged consent and understanding of privacy and security of the Telemedicine visit. The patient agreed to participate. HPI: Pt has been trying to quit smoking, has tried patch and gum, quit for about 2 weeks. Smokes about 1/2 ppd for many years. PHM: Patient Active Problem List Diagnosis Code Pruritic dermatitis L30.8 Overweight (BMI 25.0-29.9) E66.3 Current Outpatient Medications Medication Sig Dispense Refill Betamethasone Dipropionate 0.05 % External Cream (Diprosone) Apply topically to affected area 2 times a day . Applied to flares of itching, eczema rash (Patient not taking: Reported on 01/25/2022 ) 45 g 3 Levocetirizine Dihydrochloride 5 MG Oral Tablet Take by mouth 1 Tablet in the morning AND 1 Tablet before bedtime. (Patient not taking: Reported on 01/25/2022 ) No current facility-administered medications for this visit. Past Medical History: Diagnosis Date Overweight (BMI 25.0-29.9) 06/23/2020 Pruritic dermatitis 06/23/2020 Tobacco use disorder Past Surgical History: Procedure Laterality Date , INDUCED BY D&C 08/2016 COLPSCPY CERVIX W/LOOP ELECT Review of patient's allergies indicates: No Known Allergies Objective: There were no vitals taken for this visit. Review of Systems: As per HPI, all other ROS neg. Physical Exam: General: alert, healthy, and no distress Tobacco abuse disorder (Primary) - buPROPion HCl ER (SR) 150 MG Oral Tablet Extended Release 12 Hour (Wellbutrin SR); Take 1 tab by mouth daily x 3 days, then increase to 1 tab twice daily discussed risk/benefit/side effects of proposed treatment Follow up: as needed. Katherine Arevalo DO documented in this encounter Plan of Treatment Health Maintenance Due Date Last Done Comments Hepatitis B (1 of 3 - 3-dose series) 1987 COVID-19 Vaccine (#1) 01/27/1988 Pneumococcal Vaccine: Pediatrics (0 to 5 Years) and At-Risk Patients (6 to 64 Years) (1 - PCV) 07/26/1993 Hepatitis C Screening 07/26/2005 GARDASIL-HPV IMMUNIZATION SERIES (3 - 3-dose series) 05/08/2012 12/20/2011 (Done elsewhere), 11/07/2011 (Done elsewhere) HPV/Co-Test 07/26/2017 Depression Screening 04/23/2019 04/23/2018 Cervical Cancer Screening 01/06/2023 Pap Smear 01/06/2023 01/07/2020, 03/12/2016, 04/05/2015, Additional history exists Influenza Vaccine (FLU shot) (#1) 2023 03/05/2013 Diabetes Screening 07/11/2024 07/11/2021 DTaP,Tdap,and Td Vaccines (2 - Td or Tdap) 08/18/2027 08/17/2017 MENINGOCOCCAL (MENACTRA/MENVEO) Aged Out No longer eligible based on patient's age to complete this topic documented as of this encounter Medical Devices Not on filedocumented as of this encounter Visit Diagnoses Diagnosis Tobacco abuse disorder- Primary Tobacco use disorder documented in this encounter Care Teams Credit Report Checker Relationship Specialty Start Date End Date Katherine Arevalo DO [address] [facility] [place] [id number] PCP - General Family Medicine 03/31/15 documented as of this encounter
--- NOTE | 2023-05-25 14:22 | Operative Report ---
PG Post Operative Report Pre & Post Diagnosis Operation Date: 05/25/23 08:50 Pre-Op Diagnosis: Acute appendicitis Post-Op Diagnosis: Acute appendicitis I identified the patient and participated in the time-out.: Yes Procedure Operation Date: 05/25/23 08:50 Actual Procedures p Laparoscopic Appendectomy(Not Applicable) - Gideon Rosa DO Surgeon Gideon Rosa DO [employer] [place] Estimated Blood Loss 3 Findings See Below Acute perforated appendicitis Specimens Appendix Drains 19 Sixto drain Anesthesia Type General Complications None Indications Physical exam and CT evidence for acute appendicitis with free fluid Description of Procedure The patient was brought back to the operating room and placed on the operating room table in supine position. She was connected to cardiac and oxygen monitoring and supplemental O2 was administered. SCDs were applied to bilateral lower extremities. The patient was administered general anesthesia and a secure airway was obtained. The abdomen was prepped and draped in typical sterile fashion and a timeout was conducted. Local anesthetic was injected in the supraumbilical region and a small stab incision was made. A 5 mm trocar was inserted using direct visualization with a 5 mm laparoscope and a Visiport. Pneumoperitoneum was established using CO2 to local pressure 15 mmHg. An additional 5 mm trocar was inserted at the suprapubic area after injecting local anesthesia and making a stab incision. This was inserted under direct visualization. In the same fashion a left lower quadrant 12 mm trocar was inserted under direct visualization. Purulent fluid was noted in the intra- abdominal space in the right lower quadrant and pelvic region. This fluid was suctioned and sent to the lab for wound culture. The ileum was noted densely associated with the appendix toward its base. This was gently dissected away using blunt dissection with the suction. The root of the appendiceal artery was dissected the root of the appendiceal artery was dissected away from surrounding serosal tissue and the appendix using a [place] dissector. A shah loaded 45 mm endo OMID was used to ligate and transect the mesoappendix. The base of the appendix had to be further exposed and this revealed a very proximal small perforation just distal to the base of the cecum. A purple load of 45 mm Endo OMID was used to ligate and transect the base of the cecum so that the appendix could be removed. The appendix was placed in an Endo Catch bag and removed. This was sent to the pathology lab in a labeled container specimen. The staple line from both the appendiceal transection and the mesoappendix transection were very healthy appearing, clean and without bleeding. This area was copiously irrigated and suction. The pelvis was also irrigated of additional pelvic fluid that was identified and suctioned. The right upper quadrant was also irrigated and suctioned of a small amount of pelvic fluid that was identified there. A 19 Polish Sixto drain was inserted through the suprapubic incision extending between the right lower quadrant and pelvis. Omentum was used to cover the cecal area and CO2 insufflation was discontinued. Excess pneumoperitoneum was evacuated. The fascia at the left lower quadrant incision was closed with 0 Vicryl. The skin at the remaining 2 incisions was closed with 4-0 Vicryl and Dermabond. The drain insertion site was dressed with a drain sponge. The patient tolerated the procedure well. She was awakened from anesthesia, the secure airway was removed and she was transferred to recovery in stable condition. I attest to the content of the Intraoperative Record and any orders documented therein. Any exceptions are noted below.
[2023-05-25] MEDS: fentaNYL citrate PF 100 MCG/2 ML VIAL IV PRN ×3 (14:53→16:30)
[2023-05-25] MEDS ORDERED: MoRPHine SULFATE 4 MG/ML 1 ML CARP\\VIAL IV PRN (17:22)
[2023-05-25] MEDS ORDERED: MoRPHine SULFATE 2 MG/ML CARP IV PRN (17:22)
[2023-05-25] MEDS ORDERED: ACETAMINOPHEN 325 MG TAB PO PRN (17:22)
[2023-05-25] MEDS: SODIUM CHLORIDE 0.9% 500 ML IV SCH ×3 (17:52→22:33)
[2023-05-25] MEDS: PIPERACILLIN/TAZOBACTAM 4.5 GM in DEXTROSE 5% MINI-B 100 ML IV SCH (18:43)
[2023-05-25] MEDS: oxyCODONE HCL IR 5 MG TAB (IMMEDIATE RELEASE) PO PRN (19:40)
[2023-05-25] MEDS: buPROPion SR 150 MG TABCR PO SCH (22:30)
[2023-05-26] MEDS: PIPERACILLIN/TAZOBACTAM 4.5 GM in DEXTROSE 5% MINI-B 100 ML IV SCH ×2 (01:37→08:31)
[2023-05-26] MEDS: SODIUM CHLORIDE 0.9% 500 ML IV SCH ×7 (01:38→21:09)
[2023-05-26] MEDS: oxyCODONE HCL IR 5 MG TAB (IMMEDIATE RELEASE) PO PRN ×3 (01:45→13:58)
[2023-05-26 07:13] LABS: BUN Creatinine Ratio 12.9 (10-20); Calcium 8.6 mg/dl (8.6-10.3); Est GFR (African American) 135.4 ml/min; Est GFR (Non-African American) 116.8 ml/min; Potassium 3.8 mmol/L (3.5-5.1)
[2023-05-26 08:00] LABS: Basophils # (auto) 0.07 K/uL (0.00-0.20); Basophils % (auto) 0.3 %; Hematocrit (blood only) 36.7 % (37.0-47.0); Hemoglobin 12.3 g/dl (12.0-16.0); Immature Granulocytes # (auto) 0.21 K/uL (0.01-0.20); Immature Granulocytes % (auto) 0.9 %; Lymphocytes # (auto) 1.24 K/uL (1.20-3.40); Lymphocytes % (auto) 5.5 %; Mean Corpuscular Hemoglobin 29.2 pg (25.0-34.0); Mean Corpuscular Hgb Conc 33.5 g/dL (32.0-36.0); Mean Corpuscular Volume 87.2 fL (80.0-100.0); Mean Platelet Volume 10.5 fL (9.4-12.4); Monocytes # (auto) 1.26 K/uL (0.11-0.59); Monocytes % (auto) 5.6 %; Neutrophils # (auto) 19.89 K/uL (1.40-6.50); Neutrophils % (auto) 87.7 %; Platelet Count 254 K/uL (130-400); RDW Coefficient of Variation 12.8 % (11.5-14.5); RDW Standard Deviation 41.1 fL (36.4-46.3); Red Blood Count 4.21 M/uL (4.20-5.40); White Blood Count 22.67 K/ul (4.8-10.8)
[2023-05-26] MEDS: buPROPion SR 150 MG TABCR PO SCH ×2 (08:19→21:09)
--- NOTE | 2023-05-26 09:03 | Surgery Progress Note ---
Date of Service May 26, 2023 Assessment & Plan (1) Acute appendicitis: Plan: POD 1. HD stable, afebrile. Pain at the RLQ. SERGIO drain at this location. Describes a poking, sharp pain which I suspect she may be sensitive to the presence of the SERGIO drain See if patient can tolerated ambulation today with analgesic control. Will have a low threshold to remove the drain presuming this may be a site of pain. The last recorded drainage was elevated to remove. Will see how the drainage is the remainder of today. Continue NPO for now until the patient passes flatus. Admission and Anticipated Discharge Date Admission Date: May 25, 2023 Subjective Patient seen and examined this am. Notes RLQ pain particularly when she moves a round. Has been without N/V o/n, requires IV pain control. Remains NPO at this time. Denies passing flatus. Physical Exam Constitutional: healthy appearing and cooperative; not in distress and not diaphoretic Gastrointestinal (Abdomen): Abdominal incisions area c/d/i with Dermabond There is no evidence for infection. Abdomen is soft with mild distention. SERGIO drain in place with serosanguinous drainage. 170mL recorded o/n. Results & Data Vital Signs (Past 12 Hours) Vital Signs Temp Pulse Resp BP Pulse Ox O2 Del Method 05/26/23 07:37 36.8 C 89 16 113/71 97 Room Air 05/26/23 03:33 36.9 C 88 14 102/65 94 Room Air 05/25/23 23:00 36.9 C 103 H 16 100/63 94 Room Air PG Care Time/CCT Total # of Minutes Spent Total Time Spent with Patient: Total time spent is greater than 50% in coordination of care (as documented) at patient's floor/unit and/or counseling patient: Coding Level of Care Code 25180 Post Operative Follow-Up Diagnoses Acute appendicitis K35.80 Appendicitis perforation presence: with perforation (1) Acute appendicitis Appendicitis perforation presence: with perforation
[2023-05-27] MEDS: SODIUM CHLORIDE 0.9% 500 ML IV SCH ×6 (01:13→20:49)
[2023-05-27 08:01] LABS: Basophils # (auto) 0.05 K/uL (0.00-0.20); Basophils % (auto) 0.4 %; Eosinophils # (auto) 0.22 K/uL (0.00-0.50); Eosinophils % (auto) 1.6 %; Hematocrit (blood only) 31.4 % (37.0-47.0); Hemoglobin 10.5 g/dl (12.0-16.0); Immature Granulocytes # (auto) 0.07 K/uL (0.01-0.20); Immature Granulocytes % (auto) 0.5 %; Lymphocytes % (auto) 17.3 %; Mean Corpuscular Hemoglobin 29.1 pg (25.0-34.0); Mean Corpuscular Hgb Conc 33.4 g/dL (32.0-36.0); Mean Platelet Volume 10.2 fL (9.4-12.4); Monocytes # (auto) 1.27 K/uL (0.11-0.59); Monocytes % (auto) 9.2 %; Neutrophils # (auto) 9.85 K/uL (1.40-6.50); Platelet Count 253 K/uL (130-400); RDW Standard Deviation 41.4 fL (36.4-46.3); Red Blood Count 3.61 M/uL (4.20-5.40); White Blood Count 13.86 K/ul (4.8-10.8)
[2023-05-27 08:18] LABS: BUN Creatinine Ratio 18.6 (10-20); Calcium 7.7 mg/dl (8.6-10.3); Creatinine Clr Calc Pharmacy 140.8 ml/min; Est GFR (African American) 137.6 ml/min; Est GFR (Non-African American) 118.7 ml/min; Potassium 3.5 mmol/L (3.5-5.1)
[2023-05-27] MEDS: buPROPion SR 150 MG TABCR PO SCH ×2 (08:41→20:28)
[2023-05-27] MEDS: oxyCODONE HCL IR 5 MG TAB (IMMEDIATE RELEASE) PO PRN ×3 (08:43→19:10)
--- NOTE | 2023-05-27 11:25 | Surgery Progress Note ---
Date of Service May 27, 2023 Assessment & Plan (1) Acute appendicitis: Plan POD 2 S/P laparoscopic appendectomy. Afebrile and HD stable. SERGIO drain removed yesterday due to patient discomfort. Continue ambulation in halls with assistance. Continue IV fluids and n.p.o. for now until patient begins passing flatus. Continue IV antibiotics. Follow-up a.m. labs. Admission and Anticipated Discharge Date Admission Date: May 25, 2023 Subjective Patient seen and examined this a.m. The SERGIO drain was removed yesterday due to severe RLQ stabbing discomfort suspected to be due to the drain. Patient notes significant improvement and pain control and symptoms since SERGIO drain was removed. She denies N/B. She does feel bloated and says she has not started passing gas as of yet. Physical Exam Constitutional: healthy appearing and cooperative; not in distress, not d iaphoretic and not lethargic Respiratory: normal respiratory effort; no respiratory distress, no labored breathing and does not use accessory muscles Gastrointestinal (Abdomen): Abdomen is mildly distended. Mild tenderness diffusely and of course notably at incision sites. Incisions appear with some local inflammatory change but no evidence for infection. Results & Data Vital Signs (Past 12 Hours) Vital Signs Temp Pulse Resp BP Pulse Ox O2 Del Method 05/27/23 07:40 37.0 C 94 H 16 107/66 94 Room Air Laboratory Results WBC 13.86 from 22.67 yesterday PG Care Time/CCT Total # of Minutes Spent Total Time Spent with Patient: Total time spent is greater than 50% in coordination of care (as documented) at patient's floor/unit and/or counseling patient: Coding Level of Care Code 08985 Post Operative Follow-Up Diagnoses Acute appendicitis K35.80 Appendicitis perforation presence: with perforation (1) Acute appendicitis Appendicitis perforation presence: with perforation
[2023-05-28] MEDS: SODIUM CHLORIDE 0.9% 500 ML IV SCH ×3 (01:39→08:22)
[2023-05-28] MEDS: oxyCODONE HCL IR 5 MG TAB (IMMEDIATE RELEASE) PO PRN ×3 (02:54→20:44)
[2023-05-28 07:32] LABS: Basophils # (auto) 0.05 K/uL (0.00-0.20); Basophils % (auto) 0.4 %; Eosinophils # (auto) 0.25 K/uL (0.00-0.50); Eosinophils % (auto) 2.1 %; Hematocrit (blood only) 32.6 % (37.0-47.0); Hemoglobin 11.1 g/dl (12.0-16.0); Immature Granulocytes # (auto) 0.04 K/uL (0.01-0.20); Immature Granulocytes % (auto) 0.3 %; Lymphocytes # (auto) 1.88 K/uL (1.20-3.40); Lymphocytes % (auto) 15.9 %; Mean Corpuscular Hemoglobin 29.4 pg (25.0-34.0); Mean Corpuscular Volume 86.2 fL (80.0-100.0); Mean Platelet Volume 9.7 fL (9.4-12.4); Monocytes # (auto) 1.06 K/uL (0.11-0.59); Neutrophils # (auto) 8.55 K/uL (1.40-6.50); Neutrophils % (auto) 72.3 %; Platelet Count 278 K/uL (130-400); RDW Coefficient of Variation 12.8 % (11.5-14.5); RDW Standard Deviation 40.6 fL (36.4-46.3); Red Blood Count 3.78 M/uL (4.20-5.40); White Blood Count 11.83 K/ul (4.8-10.8)
[2023-05-28 07:59] LABS: BUN Creatinine Ratio 9.1 (10-20); Est GFR (African American) 140.8 ml/min; Est GFR (Non-African American) 121.5 ml/min; Potassium 3.4 mmol/L (3.5-5.1)
[2023-05-28] MEDS: buPROPion SR 150 MG TABCR PO SCH ×2 (08:15→20:43)
[2023-05-28] MEDS ORDERED: POTASSIUM CHLORIDE CRTAB 20 MEQ TABCR PO STA (08:24)
--- NOTE | 2023-05-28 08:25 | Surgery Progress Note ---
Date of Service May 28, 2023 Assessment & Plan (1) Acute appendicitis: Plan: POD 3S/P laparoscopic appendectomy for acute perforated appendicitis. Afebrile, HD stable. Patient is progressing slowly. H/H stable. May Hep-Lock IV as patient is tolerating clears very well. Continue aggressive ambulation. Will consider advancing diet later today if patient continues to pass flatus and feels less bloated. May have chemical DVT ppx. Admission and Anticipated Discharge Date Admission Date: May 25, 2023 Subjective Patient seen and examined this a.m. She is sitting up in a chair, OOB. Appears in better spirits and comfortable. Says she tolerated clear liquids yesterday and has started to pass a small amount of gas late last night. Still complains of feeling some bloating. She has remained afebrile without fevers or chills overnight. Pain has been much better controlled since removal of SERGIO drain. Physical Exam Constitutional: healthy appearing; no acute distress, not ill appearing and not diaphoretic Gastrointestinal (Abdomen): Abdomen is soft, minimally distended. Incision sites remain coapted and sealed with Dermabond. Appropriately tender to palpation at incision sites. Results & Data Vital Signs (Past 12 Hours) Vital Signs Temp Pulse Resp BP Pulse Ox O2 Del Method 05/28/23 07:10 36.9 C 90 18 111/71 94 Room Air 05/27/23 21:40 36.6 C 107 H 16 108/71 94 Room Air PG Care Time/CCT Total # of Minutes Spent Total Time Spent with Patient: Total time spent is greater than 50% in coordination of care (as documented) at patient's floor/unit and/or counseling patient: Coding Level of Care Code 36824 Post Operative Follow-Up Diagnoses Acute appendicitis K35.80 Appendicitis perforation presence: with perforation (1) Acute appendicitis Appendicitis perforation presence: with perforation
[2023-05-28] MEDS: D5W AND 1/2NSS + 20MEQ KCL 20 MEQ/1,000 ML BAG IV SCH ×2 (09:09→20:44)
--- NOTE | 2023-05-29 07:07 | Surgery Progress Note ---
Date of Service May 29, 2023 Assessment & Plan (1) Acute appendicitis: Plan: Patient is POD 4 s/p laparoscopic appendectomy. HD stable, afebrile. Tolerating clear liquid diet. Leukocytosis as of yesterday. Patient may be advanced to full liquid diet. Follow-up a.m. labs. Continue ambulation. Patient begins passing more flatus may continue to advance diet beyond full liquids and discharge home if leukocytosis is completely resolved. Admission and Anticipated Discharge Date Admission Date: May 25, 2023 Subjective Patient was seen and examined. She says she has passed a small amount of flatus. She tolerated clear liquids yesterday without the development of nausea or vomiting. She states her abdominal pain is much improved and is no longer requiring IV pain medications. She says she has minimal tenderness in the lower abdomen. Pain is well-controlled on oral pain medication. Physical Exam Constitutional: healthy appearing; not in distress and not diaphoretic Respiratory: normal respiratory effort; no respiratory distress, no labored breathing, does not use accessory muscles and no cough Gastrointestinal (Abdomen): Appropriately tender at incisions. Incisions are well coapted. Results & Data Vital Signs (Past 12 Hours) Vital Signs Temp Pulse Resp BP Pulse Ox O2 Del Method 05/28/23 21:00 Room Air 05/28/23 21:00 36.7 C 98 H 18 115/78 100 Room Air PG Care Time/CCT Total # of Minutes Spent Total Time Spent with Patient: Total time spent is greater than 50% in coordination of care (as documented) at patient's floor/unit and/or counseling patient: Coding Level of Care Code 57823 Post Operative Follow-Up Diagnoses Acute appendicitis K35.80 Appendicitis perforation presence: with perforation (1) Acute appendicitis Appendicitis perforation presence: with perforation
[2023-05-29] MEDS: buPROPion SR 150 MG TABCR PO SCH (07:47)
[2023-05-29 08:36] LABS: Basophils # (auto) 0.05 K/uL (0.00-0.20); Basophils % (auto) 0.6 %; Eosinophils # (auto) 0.29 K/uL (0.00-0.50); Eosinophils % (auto) 3.3 %; Hematocrit (blood only) 32.2 % (37.0-47.0); Hemoglobin 10.8 g/dl (12.0-16.0); Immature Granulocytes # (auto) 0.05 K/uL (0.01-0.20); Immature Granulocytes % (auto) 0.6 %; Lymphocytes # (auto) 1.37 K/uL (1.20-3.40); Lymphocytes % (auto) 15.8 %; Mean Corpuscular Hemoglobin 29.2 pg (25.0-34.0); Mean Corpuscular Hgb Conc 33.5 g/dL (32.0-36.0); Mean Platelet Volume 9.8 fL (9.4-12.4); Monocytes # (auto) 0.97 K/uL (0.11-0.59); Monocytes % (auto) 11.2 %; Neutrophils # (auto) 5.95 K/uL (1.40-6.50); Neutrophils % (auto) 68.5 %; Platelet Count 277 K/uL (130-400); RDW Coefficient of Variation 12.6 % (11.5-14.5); RDW Standard Deviation 40.1 fL (36.4-46.3); White Blood Count 8.68 K/ul (4.8-10.8)
[2023-05-29 08:41] LABS: BUN Creatinine Ratio 8.2 (10-20); Calcium 8.1 mg/dl (8.6-10.3); Creatinine Clr Calc Pharmacy 169.5 ml/min; Est GFR (African American) 146.3 ml/min; Est GFR (Non-African American) 126.2 ml/min; Potassium 3.6 mmol/L (3.5-5.1)
--- NOTE | 2023-05-29 15:09 | Discharge Summary ---
Date of Service May 29, 2023 Admission HPI Per Admitting Provider Patient is a pleasant 37 yo female with PMH of anxiety/depression, smoker (1/2 ppd), that presented to the [facility] er this AM with c/o abdominal pain that began two days ago. She reports that the pain started to get worse last night and had associated nausea / vomiting and chills. She denies known fever, SOB , CP, last moved her bowels yesterday. No prior abdominal surgeries, denies blood thinners , takes po Wellbutrin when remembers. Principal Diagnosis Acute perforated appendicitis Discharge Exam Constitutional healthy appearing; not ill appearing, not in distress and not diaphoretic Respiratory normal respiratory effort; no respiratory distress, no labored breathing and does not use accessory muscles Gastrointestinal (Abdomen) Abdomen is soft, minimal distention Laparoscopic incisions are healing well. No evidence for infection Minimally TTP at incisions and RLQ Discharge Data Allergies Allergy/AdvReac Type Severity Reaction Status Date / Time No Known Allergies Allergy Verified 05/25/23 11:08 Procedures Performed Operation Date: 05/25/23 08:50 Actual Procedures p Laparoscopic Appendectomy(Not Applicable) - Gideon Rosa DO Ordered Studies 05/25/23 07:08 CT abd pelvis IV con only Stat Hospital Course (1) Acute appendicitis: Admitted on IV abx (Zosyn started in the ED and continued through antibiotic course) Laparoscopic appendectomy on 05/25/23 with drain placement due to perforation. Post operatively she did well. POD 1 reactive leukocytosis, had pain from drain which was removed early on POD 2 and was draining serous drainage. Her bowel function was a little slower to progress. When she started having bowel function, her diet was slowly advanced. Patient tolerating oral intake well, ambulating with minimal pain well controlled on oral pain medication and ready for discharge on 05/29/23 to follow up with me in the office in 1-2 weeks. Send home on Augmentin for 6 more days. Total Time Total Time Spent Total Time Spent (In Minutes): 20 Discharge Plan Discharge Items Patient Disposition: Home - Self-Care Reason For Visit: S/P LAPAROSCOPIC PERFORATED APPENDECTOMY Discharge Diagnosis: Laparoscopic appendectomy Condition on Discharge: Good Activity: As commented below Lifting: No more than 10 pounds Bathing Comment: you can shower. no pools or baths for 2 weeks Exercise/Sports: Wait until after follow-up appointment Driving/Machine Use: no driving while taking narcotic pain med s Non-emergency contact: Surgeon Call non-emergency contact if: you have any medication questions, your symptoms worsen, your pain is worsening, you have a fever, your temperature is above 101.5, your wound has increased redness, your wound has increased drainage and your wound pain has increased Follow-up/Referrals: Clare Reynolds MD [Primary Care Provider] - Gideon Rosa, [Physician] - 06/07/23 10:00 am ( follow up in 2 weeks ) Diet: Full liquid Addtl Attending Provider Instructions: Continue a full liquid diet until you have bowel movement then you can start a low fiber diet for 2 weeks. You have surgical glue called dermabond on your surgical site incisions. You may shower with this on. This will tend to come off within a couple of weeks. Do not pick at it. You may purchase Tylenol and/or Ibuprofen over the counter if needed for additional pain control over the next few days. Take per manufacturers instructions. Do Not take more than 3 grams of Tylenol in 24 hours. Pending Studies at Discharge: No Stand-Alone Forms: My [facility], Smoking Cessation Medications and DC Order Prescriptions: New oxycodone 5 mg tablet 5 - 10 mg PO .[id number] MDD no more than 6 tabs in 24hours PRN (Reason: pain) Qty: 15 0RF Rx Instructions: Take one to two tablets by mouth every 4-6 hours as needed for pain. amoxicillin-pot clavulanate [Augmentin] 500-125 mg tablet 1 tab PO Q12H Qty: 12 0RF Continued bupropion HCl 150 mg tablet sustained-release 12 hr 150 mg PO BID Discharge Orders: Discharge Order (Routine); Ordered 05/29/23 Ordered By: Lizette Noriega/Other Patient Handouts: Low-Fiber Diet Admission Data Admit Date/Time: 05/25/23 14:27 Attending Provider: Gideon Rosa Admit Provider: Gideon Rosa Primary Care Provider: Clare Reynolds Other Interventions: Discharge Summary Assessment (RN) Last Done: 05/29/23 10:09 Coding Level of Care Code 93202 IN/OBS DISCH 30 MIN/LESS Diagnoses Acute appendicitis K35.80 Appendicitis perforation presence: with perforation
== END 2023-05-29 15:01 | disposition home or self-care (01) | DRG 399 ==
LOC: ED 06:53 → ASU 10:50 → 3N 14:27